=== PATIENT | female | born 1970 | race American Indian/Alaskan Native ===

== ENCOUNTER 2024-02-11 20:57 | Emergency (ER) | payer MEDICAID, SELFPAY ==
[2024-02-11 20:58] VITALS: BMI 35.9
--- NOTE | 2024-02-11 21:12 | EDNOTE_ITS ---
ED General RME/HPI General Chief complaint: Abdominal Pain Stated complaint: SPIDER BITE ON LEFT SHOULDER, NAUSEA, CRAMPING Time Seen by Provider: 02/11/24 21:08 Arrival date/time: 02/11/24 20:57 CC: Mild nausea with abdominal pain HPI onset 3 days ago after starting clindamycin for infection under left shoulder. Patient states she has a history of gastritis states this feels different , denies any diarrhea chest pain fever chills but intermittent nausea. Only change in her lifestyle currently is on clindamycin as stated above. No other complaints at this time Related Data Previous Rx's ?Medication ?Instructions ?Recorded albuterol sulfate 90 mcg/actuation 1 puff inhalation Q6H PRN 07/13/22 aerosol inhaler (Ventolin HFA) shortness of breath or wheezing #6.7 grams azithromycin 250 mg tablet See Rx Instructions PO .COMPLEX #6 07/13/22 (Zithromax) tabs albuterol sulfate 90 mcg/actuation 1 puff inhalation QID PRN 10/15/22 aerosol inhaler shortness of breath or wheezing #8.5 grams prednisone 20 mg tablet See Taper PO QDAY #15 tabs 10/15/22 ondansetron 4 mg disintegrating 4 mg PO Q8H #14 tabs 02/11/24 tablet Allergies Allergy/AdvReac Type Severity Reaction Status Date / Time Penicillins Allergy Unknown CAN'T Verified 12/14/22 10:09 REMEMBER Review of Systems Review of Systems Narrative Review of Systems: GEN: No fever, no chills, no weight loss EYES: No discharge, no visual changes, no pain HEENT: No ear pain, no congestion, no sore throat PULM: No shortness of breath, no cough, no congestion CV: No chest pain, no dyspnea on exertion, no palpitations GI: + nausea, no vomiting, no diarrhea, + pain, no constipation : No frequency, no urgency, no dysuria MUSC/SKEL: No joint pain, no back pain SKIN: No rash PSYCH: No hallucinations, no depression HEME/LYMPH: No easy bleeding or bruising tendencies NEURO: No weakness, no headache Past Medical History Social History SMOKING STATUS: Never smoker ED Exam Narrative Physical exam: [General: Obese not in any acute distress Head normocephalic HEENT: Within acceptable limits Neck is supple nontender Chest equal chest rise nontender to palpation Respiratory: Clear to auscultation no wheezes crackles or rubs CV: Rate rhythm is regular no murmurs rubs or clicks Abdomen is distended secondary to body habitus soft nontender no masses positive bowel sounds all 4 quadrants Back: No CVA tenderness no spinous process tenderness from cervical spine thoracic and lumbar spine Skin: Small indurated site on her left upper back just medial and distal to the shoulder. Mild surrounding erythematous area open center lesion oozing serous and exudative material. Otherwise intact no petechiae rash induration ulceration or crepitus Extremities: Moving all extremity against resistance cap refill less than 2 seconds neurosensory intact Neuro: Awake alert oriented x3 Glascow coma 15 no focal deficits] Course Quality Measures none Orders Category Date Time Status CBC Stat Lab 02/11/24 21:31 Completed CMP [Comprehensive Metabolic Panel] Stat Lab 02/11/24 21:31 Completed Urinalysis Stat Lab 02/11/24 21:11 Ordered Ondansetron Odt [Zofran Odt] Med 02/11/24 21:11 Discontinued 4 mg PO X1 ONE Vital Signs Vital signs: Vital Signs Temperature 98.1 F 02/11/24 22:12 Pulse Rate 98 02/11/24 22:12 Respiratory Rate 18 02/11/24 22:12 Blood Pressure 148/89 H 02/11/24 22:12 Pulse Oximetry (%) 96 02/11/24 22:12 Oxygen Delivery Method Room Air 02/11/24 22:12 [facility] Patient data External records reviewed:: [facility] previous records Clinical information provided by:: patient Social determinants that could affect healthcare access:: none Patient has the following chronic illnesses:: Gastritis How is presenting disease/condition affected by chronic disease/condition?: u neffected by Evaluation data The following diagnostics were reviewed and interpreted by me:: lab results Lab and/or radiology exams considered but not ordered:: CBC shows no acute leukocytosis anemia thrombocytopenia CMP shows no significant electrolyte imbalances renal impairment transaminitis or T. bili elevation Interpretation Summary: I suspect this to mild gastritis secondary to oral antibiotics. Patient will put on ondansetron and discharged home. Medications Medications considered but not ordered:: None Medication administrations:: Medication Administration History Discontinued Medications Ondansetron HCl (Ondansetron Odt 4 Mg Tabrap) 4 mg PO X1 ONE; Protocol Stop: 02/11/24 21:12 Last Admin: 02/11/24 21:18 Dose: 4 mg Documented By: OA None Consultations Consultation(s) initiated? (list below): No Diagnosis Differential Diagnosis ED Complaint MDM: Gastritis cholelithiasis pancreatitis Most likely diagnosis given after review of the tests above:: Mild gastritis Admission Indicated Admission indicated?: not indicated Explain why admission is indicated or not indicated:: Stable for outpatient follow-up Admission Request Was there a request for admission?: No Disposition Plan Disposition Plan: Discharge Discharge Attestation Discharge Attestation: The patient and all family members were given an opportunity to ask questions and understood the discharge instructions. Discharge instructions specifically effects, indications for sooner follow up or return to the emergency department, and the expected course of current diagnosis. Patient condition: Stable Medical Decision Making Differential Diagnosis Differential Diagnosis: Gastritis cholelithiasis pancreatitis Lab Data 02/11/24 21:31 02/11/24 21:31 Labs: Lab Results 02/11/24 Range/Units 21:31 WBC 10.3 (3.6-11.0) Thou/mm3 RBC 5.27 H (4.00-5.20) Miln/mm3 Hgb 15.1 (12.0-16.0) g/dL Hct 45.0 (36.0-46.0) % MCV 85 (80-100) fL MCH 28.7 (25.0-35.0) pg MCHC 33.6 (31.0-37.0) g/dl RDW Std Deviation 39.1 (36.4-46.3) fL Plt Count 296 (140-440) Thou/mm3 Neut % (Auto) 48 (37-80) % Lymph % (Auto) 38 (10-50) % Cowley % (Auto) 8 (0-12) % Eos % (Auto) 6 (0-10) % Baso % (Auto) 1 (0-2.5) % Neut # (Auto) 4.9 (1.8-7.7) Thou/mm3 Lymph # (Auto) 3.9 (1.0-4.8) Thou/mm3 Cowley # (Auto) 0.8 (0.0-0.8) Thou/mm3 Eos # (Auto) 0.6 H (0.0-0.5) Thou/mm3 Baso # (Auto) 0.1 (0.0-0.2) Thou/mm3 Immature Gran # (Auto) 0.03 H (0.00-0.00) Thou/mm3 Absolute Nucleated RBC 0.00 (0.00-0.00) Thou/mm3 Immature Gran % 0 (0-0) % Nucleated RBC % 0 (0) /100 WBC Sodium 138 (136-145) mMol/L Potassium 4.0 (3.4-5.1) mMol/L Chloride 104 (98-107) mMol/L Carbon Dioxide 27.7 (20.0-31.0) mMol/L Anion Gap 6 L (7-16) BUN 14 (9-23) mg/dL Creatinine 0.9 (0.6-1.3) mg/dL Estim Creat Clear Calc 77.0 (>60) mL/min eGFR > 60 (60 - ) See Note BUN/Creatinine Ratio 16 (12-20) Ratio Glucose 85 (74-106) mg/dL Calculated Osmolality 275 (275-295) Calcium 10.3 (8.3-10.6) mg/dL Corrected Calcium 10.3 H (8.5-10.1) mg/dL Total Bilirubin 0.6 (0.3-1.2) mg/dL AST 16 (0-34) U/L ALT 8 L (10-49) U/L Alkaline Phosphatase 114 (46-116) U/L Total Protein 8.0 (5.7-8.2) gm/dL Albumin 4.7 (3.5-5.0) gm/dL Globulin 3.3 (2.3-3.5) gm/dL Albumin/Globulin Ratio 1.4 (1.2-2.2) Discharge Plan Plan Patient Disposition: HOME (Self Care) Patient condition on transfer: Stable Prescriptions/Referrals Prescriptions/Med Rec: New ondansetron 4 mg tablet,disintegrating 4 mg PO Q8H Qty: 14 0RF No Action azithromycin [Zithromax] 250 mg tablet See Rx Instructions .ROUTE .COMPLEX Qty: 6 0RF Rx Instructions: For 250 mg dose pack: take 500 mg today (day 1), then 250 mg for 4 days (days 2-5) albuterol sulfate [Ventolin HFA] 90 mcg/actuation HFA aerosol inhaler 1 puff inhalation Q6H PRN (Reason: shortness of breath or wheezing) Qty: 6.7 0RF prednisone 20 mg tablet See Taper PO QDAY Qty: 15 0RF Taper: Prednisone Taper 60 mg DAILY for 5 Days and 0 Hour albuterol sulfate 90 mcg/actuation HFA aerosol inhaler 1 puff inhalation QID PRN (Reason: shortness of breath or wheezing) Qty: 8.5 0RF Problem List Clinical Impression: Gastroenteritis Patient/Caregiver Discharge Instructions Other Activity Instructions:: I believe you have mild gastroenteritis secondary to antibiotic administration please stick to a bland diet no alcohol continue take antibiotics until completely clear if there is worsening of symptoms in spite of the medication given return the emergency room for reevaluation. Education Materials: ED Gastroenteritis, Noninfectious Print Language: Luxembourgish Stand Alone Forms: Jessica Award Info., Patient Portal Info Letter, Work/School Release PA/TRANSFER CONTROLLER Supervising Physician PA/TRANSFER CONTROLLER Supervising Physician: Louis Matta ENP
[2024-02-11] MEDS: ONDANSETRON ODT 4 MG TABRAP PO (21:18)
[2024-02-11 21:48] LABS: Basophils # (Auto) 0.1 Thou/mm3 (0.0-0.2); Basophils % (Auto) 1 % (0-2.5); Eosinophils # (Auto) 0.6 Thou/mm3 (0.0-0.5); Eosinophils % (Auto) 6 % (0-10); Hemoglobin 15.1 g/dL (12.0-16.0); Immature Granulocytes % (Auto) 0 % (0-0); Immature Granulocytes Auto 0.03 Thou/mm3 (0.00-0.00); Lymphocytes # (Auto) 3.9 Thou/mm3 (1.0-4.8); Lymphocytes % (Auto) 38 % (10-50); Mean Corpuscular HGB Conc 33.6 g/dl (31.0-37.0); Mean Corpuscular Hemoglobin 28.7 pg (25.0-35.0); Mean Corpuscular Volume 85 fL (80-100); Monocytes # (Auto) 0.8 Thou/mm3 (0.0-0.8); Monocytes % (Auto) 8 % (0-12); Neutrophils # (Auto) 4.9 Thou/mm3 (1.8-7.7); Neutrophils % (Auto) 48 % (37-80); Nucleated Red Blood Cell % 0 /100 WBC (0); Platelet Count 296 Thou/mm3 (140-440); RDW Standard Deviation 39.1 fL (36.4-46.3); Red Blood Count 5.27 Miln/mm3 (4.00-5.20); White Blood Count 10.3 Thou/mm3 (3.6-11.0)
[2024-02-11 22:01] LABS: Alanine Aminotransferase 8 U/L (10-49); Albumin, Serum 4.7 gm/dL (3.5-5.0); Albumin/Globulin Ratio 1.4 (1.2-2.2); Alkaline Phosphatase 114 U/L (46-116); Anion Gap 6 (7-16); Aspartate Amino Transferase 16 U/L (0-34); BUN/Creatinine Ratio 16 Ratio (12-20); Bilirubin,Total 0.6 mg/dL (0.3-1.2); Blood Urea Nitrogen 14 mg/dL (9-23); Calcium 10.3 mg/dL (8.3-10.6); Calcium (Corrected) 10.3 mg/dL (8.5-10.1); Carbon Dioxide 27.7 mMol/L (20.0-31.0); Chloride 104 mMol/L (98-107); Creatinine (Component) 0.9 mg/dL (0.6-1.3); Globulin 3.3 gm/dL (2.3-3.5); Glucose 85 mg/dL (74-106); Osmolality,Calculated 275 (275-295); Sodium 138 mMol/L (136-145); eGFR > 60 See Note
[2024-02-11 22:12] VITALS: BP 148/89; PULSE 98; RESP 18; TEMP 36.7; O2SAT 96
[2024-02-11 22:27] LABS: Collection Type, Urine Clean Catch
[2024-02-11 22:38] LABS: Bilirubin,Urine Negative (Negative); Blood,Urine Negative (Negative); Clarity,Urine Clear (Clear/Hazy); Color,Urine Yellow (Lt Yel-Yel); Glucose, Urine Negative (Negative); Ketones,Urine Negative (Negative); Leukocyte Esterase,Urine Positive (Negative); Nitrite,Urine Negative (Negative); PH,Urine 6.5 (5.0-7.0); Protein,Urine Trace (Neg - Trace); RBC,Urine 7 /hpf (0-3); Specific Gravity,Urine 1.028 (1.001-1.035); Squamous Epithelial Cell,Urine 5 /hpf (0-5); WBC,Urine 9 /hpf (0-5)
== END 2024-02-11 22:53 | disposition home or self-care (01) ==
LOC: SERX 22:30
PROVIDERS: Registered Nurse General Practice; Emergency Provider Emergency Medicine; PCP Nurse Practitioner Family
DX: K52.9 Noninfective gastroenteritis and colitis, unspecified (principal)
CPT/HCPCS: 36415; 80053; 81001; 85025; 99283; Q0162

== ENCOUNTER → 2024-05-29 | Outpatient (CLI) | payer MEDICAID, SELFPAY ==
--- NOTE | 2024-05-29 11:30 | XR_ITS ---
Examination: Thyroid sonography complete TECHNIQUE: Grayscale sonographic images thyroid lobes with color flow analysis Exam date and time: May 30, 1999 2512 noon INDICATIONS: 5 mm midpole right thyroid nodule on sonogram July 24, 2023 FINDINGS: Right thyroid 3.2 cm no solid nodules Left thyroid 3.1 cm no solid nodules IMPRESSION: Negative for thyroid nodules on this study
== END | disposition home or self-care (01) ==
PROVIDERS: Referring Provider Nurse Practitioner Family; Visit Provider Nurse Practitioner Family
DX: E03.9 Hypothyroidism, unspecified (principal)
CPT/HCPCS: 76536

== ENCOUNTER → 2024-10-29 | Outpatient (CLI) | payer BC, MEDICAID, SELFPAY ==
--- NOTE | 2024-10-29 14:00 | XR_ITS ---
Examination: Breast ultrasound complete, bilateral Date and time of exam: October 29 thousand 25, 1406 hrs. Indications: Breast sonography December 27, 2022 right breast retroareolar nodule 9 mm Technique: Real-time grayscale ultrasonographic imaging bilateral breasts, including all 4 quadrants as well as nipple retroareolar and axillary regions. Findings: Sonographic images right breast Retroareolar nodule right breast circumscribed 6 x 6 mm Sonographic images left breast No cystic or solid mass, dilated retroareolar ducts Impression: BI-RADS Category 2: Benign findings
--- NOTE | 2024-10-29 15:15 | XR_ITS ---
Examination: DATE: 05/15/2024, 11:57 AM Fluoroscopic guided right knee arthrogram, Indication: Knee pain, pre-MR Fluoroscopy time: 1.2 minutes Dose: 1.16mGy A timeout was completed verifying correct patient, procedure, site, positioning. The patient was placed in a supine position for the arthrogram Technique: Skin over the anterior lateral right knee is prepped. Local anesthesia obtained with 1% lidocaine, 1 cc divided doses. 22-gauge Chiba needle was passed into the knee joint laterally utilizing fluoroscopic guidance. 1 cc of Isoview 300 injected confirming position of the needle tip within the knee joint. 12 cc bacteriostatic 0.9% with 0.1cc gadolinium introduced into the right knee joint for subsequent MRI arthrogram. The patient was in satisfactory and stable condition at completion of the procedure. Estimated blood loss 0 cc. Findings: Contrast material is present within the knee joint indicating successful right knee arthrogram. Some contrast was also seen lateral to the knee joint. Patient had difficulty tolerating procedure and was unable to hold still. Impression: Successful right knee arthrogram for MRI study to follow.
== END | disposition home or self-care (01) ==
LOC: CDIM 13:47
PROVIDERS: PCP Nurse Practitioner Family; Referring Provider Nurse Practitioner Family; Visit Provider Nurse Practitioner Family
DX: R92.323 Mammographic fibroglandular density, bilateral breasts (principal)
CPT/HCPCS: 76641; 77062; 77066; G0279

== ENCOUNTER → 2025-01-06 | Outpatient (CLI) | payer BC, MEDICAID, SELFPAY ==
--- NOTE | 2025-01-06 12:33 | XR_ITS ---
Examination: Shoulder, left, 3 views Technique: Shoulder AP internal rotation, AP external rotation, Y view shoulder, 3 views Exam date and time : January 06, 2025, 1448 hours INDICATIONS: Left shoulder pain beginning 1 week ago. FINDINGS: Moderate osteopenia. Moderate narrowing glenohumeral joint. Mild osteoarthritis acromioclavicular joint No fracture IMPRESSION: Moderate narrowing glenohumeral joint
== END | disposition home or self-care (01) ==
LOC: CDIM 12:29
PROVIDERS: PCP Nurse Practitioner Family; Referring Provider Nurse Practitioner Family; Visit Provider Nurse Practitioner Family
DX: M25.812 Other specified joint disorders, left shoulder (principal)
CPT/HCPCS: 73030